=== PATIENT | male | born 1990 | race Caucasian/White ===

== ENCOUNTER 2023-10-02 18:12 | Inpatient (IN) | payer SELFPAY ==
[2023-10-02 19:20] VITALS: BMI 23.5
[2023-10-02] MEDS ORDERED: IBUPROFEN 400 MG TABLET (FP) PO PRN (21:01)
[2023-10-02] MEDS ORDERED: DICYCLOMINE HCL 10 MG CAPSULE PO PRN (21:01)
[2023-10-02] MEDS ORDERED: LOPERAMIDE HCL 2 MG CAPSULE PO PRN (21:01)
[2023-10-02] MEDS ORDERED: POLYETHYLENE GLYCOL (HEALTHYLAX) 3350 17 GM PACKET PO PRN (21:01)
[2023-10-02] MEDS ORDERED: NALOXONE HCL 0.4 MG/ML VIAL IM PRN (21:01)
[2023-10-02] MEDS ORDERED: NALOXONE HCL (KLOXXADO) 8 MG SPRAY NS PRN (21:01)
[2023-10-02] MEDS ORDERED: guaiFENesin 600 MG TABLET.ER (FP) PO PRN (21:01)
[2023-10-02] MEDS ORDERED: MAG HYDROX/AL HYDROX/SIMETH 30 ML UNIT-DOSE CUP PO PRN (21:01)
[2023-10-02] MEDS ORDERED: BENZONATATE 200 MG CAPSULE PO PRN (21:01)
[2023-10-02] MEDS ORDERED: BENZOCAINE/MENTHOL (CHLORASEPTIC ) LOZENGE MM PRN (21:01)
[2023-10-02] MEDS ORDERED: MAGNESIUM HYDROX 2400MG/30ML ORAL SUSPENSION 30 ML CUP PO PRN (21:01)
[2023-10-02] MEDS ORDERED: BISMUTH SUBSALICYLATE 524 MG/30 ML PO PRN (21:01)
[2023-10-02] MEDS ORDERED: ONDANSETRON *ODT* 4 MG TABLET SL PRN (21:01)
[2023-10-02] MEDS: THIAMINE HCL 100 MG TABLET (FP) PO SCH (22:53)
[2023-10-02] MEDS: MELATONIN 5 MG TABLETS PO SCH (22:53)
[2023-10-03] MEDS: hydrOXYzine PAMOATE 25 MG CAPSULE (FP) PO PRN (10:15)
[2023-10-03] MEDS: NICOTINE 14 MG/24 HOURS TOPICAL PATCH TD SCH (10:15)
[2023-10-03] MEDS: PRENATAL VITAMINS W/ FOLIC ACID TABLET (FP) PO SCH (10:15)
[2023-10-03] MEDS ORDERED: cloNIDine HCL 0.1 MG TABLET PO PRN (10:50)
[2023-10-03] MEDS: methaDONE HCL 10 MG TABLET (FOR DETOX USE ONLY) PO ONE (10:59)
[2023-10-03 15:30] LABS: CHLORIDE 107 mmol/L (98-107); POTASSIUM 4.1 mmol/L (3.5-5.1); SODIUM 142 mmol/L (136-145)
[2023-10-03 15:36] LABS: ANION GAP 6 mmol/L (4-13); CALCIUM 9.1 mg/dL (8.5-10.1); CO2 30 mmol/L (21-32); GLUCOSE,RANDOM 84 mg/dL (74-106)
[2023-10-03 15:37] LABS: BLOOD UREA NITROGEN 18.8 mg/dL (7-18)
[2023-10-03 15:39] LABS: CREATININE 0.7 mg/dL (0.55-1.3); SGPT/ALT 19 U/L (13-61)
[2023-10-03 15:40] LABS: SGOT/AST 12 U/L (15-37)
[2023-10-03 15:41] LABS: BILIRUBIN,TOTAL 0.8 mg/dL (0.2-1); TOT PROT 6.9 g/dl (6.4-8.2)
[2023-10-03 15:42] LABS: ALK PHOS 58 U/L (45-117)
[2023-10-03 15:44] LABS: HEMATOCRIT 40.8 % (35.4-49); HEMOGLOBIN 13.5 GM/dL (11.7-16.9); MCH 30.4 pg (25.7-33.7); MCHC 33.1 g/dl (32.0-35.9); MEAN PLT VOLUME 7.8 fl (7.5-11.1); PLATELET COUNT 271 10^3/uL (134-434); RBC 4.44 M/mm3 (4.00-5.60); RDW 13.5 % (11.9-15.9); WHITE BLOOD COUNT 6.8 K/mm3 (4.0-10.0)
[2023-10-03] MEDS: IBUPROFEN 600 MG TABLET (FP) PO PRN (18:37)
[2023-10-03] MEDS: METHOCARBAMOL 500 MG TABLET PO PRN (18:37)
[2023-10-04] MEDS ORDERED: TRIMETHOBENZAMIDE HCL 200MG/2ML INJ IM ONE (09:15)
[2023-10-04] MEDS: ONDANSETRON 4 MG/2 ML VIAL IM ONE (09:21)
[2023-10-04] MEDS: NICOTINE POLACRILEX 2 MG GUM BUC PRN (17:29)
[2023-10-05] MEDS: methaDONE HCL 10 MG TABLET (FOR DETOX USE ONLY) PO ONE (09:09)
[2023-10-05] MEDS: ACETAMINOPHEN 325 MG TABLET (FP) PO PRN (18:28)
[2023-10-07] MEDS: methaDONE HCL 10 MG TABLET (FOR DETOX USE ONLY) PO ONE (09:14)
[2023-10-07 12:50] VITALS: RESP 18
[2023-10-08 06:20] VITALS: BP 106/65; PULSE 68; TEMP 97.8
== END 2023-10-08 08:57 | disposition home or self-care (01) | DRG 773 ==
LOC: YASAS 18:12 → EDBD 21:34 → Y3N 21:34
PROVIDERS: ADMIT Allergy & Immunology; ATTEND Surgery
PROC: HZ2ZZZZ Detoxification Services for Substance Abuse Treatment (ICD-10-PCS; principal; 2023-10-02)
DX: F11.23 Opioid dependence with withdrawal (principal); F14.20 Cocaine dependence, uncomplicated; F12.20 Cannabis dependence, uncomplicated; F17.210 Nicotine dependence, cigarettes, uncomplicated; R76.8 Other specified abnormal immunological findings in serum; Z86.19 Personal history of other infectious and parasitic diseases
CPT/HCPCS: 36415; 71046-TC-FY; 80053; 80307; 85027; 86593; 86780; 93005; 93010

== ENCOUNTER 2024-02-24 14:06 | Inpatient (IN) | payer SELFPAY ==
[2024-02-24 15:13] VITALS: BMI 24.4
[2024-02-24] MEDS ORDERED: NALOXONE HCL 0.4 MG/ML VIAL IM PRN (15:21)
[2024-02-24] MEDS ORDERED: MAGNESIUM HYDROX 2400MG/30ML ORAL SUSPENSION 30 ML CUP PO PRN (15:21)
[2024-02-24] MEDS ORDERED: BISMUTH SUBSALICYLATE 262 MG/15 ML BTL PO PRN (15:21)
[2024-02-24] MEDS ORDERED: MAG HYDROX/AL HYDROX/SIMETH 30 ML UNIT-DOSE CUP PO PRN (15:21)
[2024-02-24] MEDS ORDERED: POLYETHYLENE GLYCOL (HEALTHYLAX) 3350 17 GM PACKET PO PRN (15:21)
[2024-02-24] MEDS ORDERED: hydrOXYzine PAMOATE 25 MG CAPSULE (FP) PO PRN (15:21)
[2024-02-24] MEDS ORDERED: DICYCLOMINE HCL 10 MG CAPSULE PO PRN (15:21)
[2024-02-24] MEDS ORDERED: ONDANSETRON *ODT* 4 MG TABLET SL PRN (15:21)
[2024-02-24] MEDS ORDERED: ACETAMINOPHEN 325 MG TABLET (FP) PO PRN (15:21)
[2024-02-24] MEDS ORDERED: NALOXONE (NARCAN) HCL 4 MG/0.1 ML SPRAY NS PRN (15:21)
[2024-02-24] MEDS ORDERED: BENZOCAINE/MENTHOL (CHLORASEPTIC ) LOZENGE MM PRN (15:21)
[2024-02-24] MEDS ORDERED: guaiFENesin 600 MG TABLET.ER (FP) PO PRN (15:21)
[2024-02-24] MEDS ORDERED: IBUPROFEN 600 MG TABLET (FP) PO PRN (15:21)
[2024-02-24] MEDS ORDERED: IBUPROFEN 400 MG TABLET (FP) PO PRN (15:21)
[2024-02-24] MEDS ORDERED: BENZONATATE 200 MG CAPSULE PO PRN (15:21)
[2024-02-24] MEDS ORDERED: methaDONE HCL 10 MG TABLET (FOR DETOX USE ONLY) ONE (16:15)
[2024-02-24] MEDS ORDERED: NICOTINE 14 MG/24 HOURS TOPICAL PATCH TD ONE (16:16)
[2024-02-24] MEDS: methaDONE HCL 10 MG TABLET PO ONE (16:18)
[2024-02-24] MEDS: NICOTINE 14 MG/24 HOURS TOPICAL PATCH TD SCH (16:19)
[2024-02-24] MEDS ORDERED: methaDONE HCL 10 MG TABLET PO PRN (17:21)
[2024-02-24] MEDS: cloNIDine HCL 0.1 MG TABLET PO SCH (18:01)
[2024-02-24] MEDS: THIAMINE 100 MG TABLET PO SCH (22:56)
[2024-02-24] MEDS: MELATONIN 5 MG TABLETS PO SCH (22:56)
[2024-02-24] MEDS: METHOCARBAMOL 500 MG TABLET PO PRN (22:57)
[2024-02-25] MEDS: methaDONE 40 MG, methaDONE 10 MG PO ONE (09:58)
[2024-02-25] MEDS: PRENATAL VITAMINS W/ FOLIC ACID TABLET (FP) PO SCH (09:59)
[2024-02-25 14:22] LABS: CHLORIDE 111 mmol/L (98-107); POTASSIUM 3.9 mmol/L (3.5-5.1); SODIUM 143 mmol/L (136-145)
[2024-02-25 14:24] LABS: CALCIUM 9.1 mg/dL (8.5-10.1)
[2024-02-25 14:25] LABS: ALBUMIN 3.7 g/dl (3.4-5.0); ANION GAP 7 mmol/L (4-13); BLOOD UREA NITROGEN 10.6 mg/dL (7-18); CO2 25 mmol/L (21-32); GLUCOSE,RANDOM 85 mg/dL (74-106); HEMATOCRIT 39.8 % (35.4-49); HEMOGLOBIN 13.5 GM/dL (11.7-16.9); MCH 30.8 pg (25.7-33.7); MEAN CELL VOLUME 90.8 fl (80-96); MEAN PLT VOLUME 8.1 fl (7.5-11.1); PLATELET COUNT 261 10^3/uL (134-434); RBC 4.38 M/mm3 (4.00-5.60); RDW 13.3 % (11.9-15.9); WHITE BLOOD COUNT 5.2 K/mm3 (4.0-10.0)
[2024-02-25 14:26] LABS: CREATININE 0.7 mg/dL (0.55-1.3); SGOT/AST 10 U/L (15-37)
[2024-02-25 14:30] LABS: BILIRUBIN,TOTAL 0.7 mg/dL (0.2-1); TOT PROT 6.2 g/dl (6.4-8.2)
[2024-02-25 14:31] LABS: ALK PHOS 55 U/L (45-117)
[2024-02-25 14:59] LABS: SGPT/ALT 20 U/L (13-61)
[2024-02-26] MEDS ORDERED: cloNIDine HCL 0.1 MG TABLET PO PRN
[2024-02-26] MEDS: methaDONE 40 MG, methaDONE 20 MG PO ONE (10:16)
[2024-02-26] MEDS: MELATONIN 5 MG TABLETS PO PRN (22:24)
[2024-02-27] MEDS: methaDONE 40 MG, methaDONE 30 MG PO ONE (09:42)
[2024-02-27] MEDS: NICOTINE POLACRILEX 2 MG GUM BUC PRN (22:04)
[2024-02-28] MEDS: methaDONE HCL 40 MG DISPERSABLE TABLET PO ONE (10:02)
[2024-02-29] MEDS: methaDONE 80 MG, methaDONE 10 MG PO ONE (09:31)
[2024-02-29 16:57] VITALS: RESP 16
[2024-02-29] MEDS: LOPERAMIDE HCL 2 MG CAPSULE PO PRN (21:26)
[2024-03-01 06:13] VITALS: PULSE 74
[2024-03-01 09:04] VITALS: BP 107/56; TEMP 97.5
[2024-03-01] MEDS ORDERED: methaDONE HCL 10 MG TABLET PO SCH (11:15)
[2024-03-01] MEDS: methaDONE 80 MG, methaDONE 10 MG PO SCH (11:22)
== END 2024-03-01 12:19 | disposition home or self-care (01) | DRG 773 ==
LOC: YASAS 14:06 → Y6N 16:26
PROVIDERS: ADMIT Allergy & Immunology; ATTEND Psychiatry & Neurology Pain Medicine
PROC: HZ2ZZZZ Detoxification Services for Substance Abuse Treatment (ICD-10-PCS; principal; 2024-02-24)
DX: F11.23 Opioid dependence with withdrawal (principal); F14.20 Cocaine dependence, uncomplicated; F15.10 Other stimulant abuse, uncomplicated; F12.20 Cannabis dependence, uncomplicated; F17.210 Nicotine dependence, cigarettes, uncomplicated; Z86.19 Personal history of other infectious and parasitic diseases
CPT/HCPCS: 36415; 80053; 80305; 80307; 85027; 86593; 86780; 93005; 93010

== ENCOUNTER 2024-11-22 18:29 | Inpatient (IN) | payer SELFPAY ==
[2024-11-22 19:04] VITALS: BMI 27.3
[2024-11-22] MEDS ORDERED: BENZOCAINE/MENTHOL (CHLORASEPTIC ) LOZENGE MM PRN (19:51)
[2024-11-22] MEDS ORDERED: NICOTINE POLACRILEX 2 MG LOZENGE BC PRN (19:51)
[2024-11-22] MEDS ORDERED: LOPERAMIDE HCL 2 MG CAPSULE PO PRN (19:51)
[2024-11-22] MEDS ORDERED: POLYETHYLENE GLYCOL (HEALTHYLAX) 3350 17 GM PACKET PO PRN (19:51)
[2024-11-22] MEDS ORDERED: BENZONATATE 200 MG CAPSULE PO PRN (19:51)
[2024-11-22] MEDS ORDERED: ONDANSETRON *ODT* 4 MG TABLET SL PRN (19:51)
[2024-11-22] MEDS ORDERED: DICYCLOMINE HCL 10 MG CAPSULE PO PRN (19:51)
[2024-11-22] MEDS ORDERED: MAGNESIUM HYDROX 2400MG/30ML ORAL SUSPENSION 30 ML CUP PO PRN (19:51)
[2024-11-22] MEDS ORDERED: IBUPROFEN 400 MG TABLET (FP) PO PRN (19:51)
[2024-11-22] MEDS ORDERED: guaiFENesin 600 MG TABLET.ER (FP) PO PRN (19:51)
[2024-11-22] MEDS ORDERED: NALOXONE (NARCAN) HCL 4 MG/0.1 ML SPRAY NS PRN (19:51)
[2024-11-22] MEDS ORDERED: MAG HYDROX/AL HYDROX/SIMETH 30 ML UNIT-DOSE CUP PO PRN (19:51)
[2024-11-22] MEDS ORDERED: BISMUTH SUBSALICYLATE 524 MG/30 ML PO PRN (19:51)
[2024-11-22] MEDS: MELATONIN 5 MG TABLETS PO SCH (21:28)
[2024-11-22] MEDS: METHOCARBAMOL 500 MG TABLET PO PRN (21:28)
[2024-11-22] MEDS: hydrOXYzine PAMOATE 25 MG CAPSULE (FP) PO PRN (21:28)
[2024-11-22] MEDS: THIAMINE 100 MG TABLET PO SCH (21:29)
[2024-11-23] MEDS: cloNIDine HCL 0.1 MG TABLET PO SCH (09:10)
[2024-11-23] MEDS: methaDONE HCL 40 MG DISPERSABLE TABLET PO ONE (09:10)
[2024-11-23] MEDS: PRENATAL VITAMINS W/ FOLIC ACID TABLET (FP) PO SCH (09:11)
[2024-11-23 11:19] LABS: HEMATOCRIT 41.1 % (40.1-51.0); HEMOGLOBIN 13.4 g/dL (13.7-17.5); MCHC 32.6 g/dl (32.3-36.5); MEAN CELL VOLUME 93.2 fl (79.0-92.2); PLATELET COUNT 268 x10^3/uL (163-337); RDW 12.9 % (12.0-15.6)
[2024-11-23 11:26] LABS: POTASSIUM 4.3 mmol/L (3.5-5.1)
[2024-11-23 11:35] LABS: ALBUMIN 3.7 g/dl (3.4-5.0); CALCIUM 9.5 mg/dL (8.5-10.1)
[2024-11-23 11:36] LABS: BLOOD UREA NITROGEN 14.4 mg/dL (7-18)
[2024-11-23 11:39] LABS: CREATININE 0.8 mg/dL (0.55-1.3)
[2024-11-23 11:40] LABS: BILIRUBIN,TOTAL 0.5 mg/dL (0.2-1); TOT PROT 6.5 g/dl (6.4-8.2)
[2024-11-23] MEDS: ACETAMINOPHEN 325 MG TABLET (FP) PO PRN (17:13)
[2024-11-24] MEDS: IBUPROFEN 600 MG TABLET (FP) PO PRN (17:28)
[2024-11-25] MEDS ORDERED: cloNIDine HCL 0.1 MG TABLET PO PRN
[2024-11-25] MEDS: methaDONE 40 MG, methaDONE 10 MG PO ONE (09:38)
[2024-11-26] MEDS: NICOTINE POLACRILEX 2 MG GUM BUC PRN (13:39)
[2024-11-27] MEDS: methaDONE 40 MG, methaDONE 20 MG PO ONE (09:22)
[2024-11-28 09:04] VITALS: BP 125/76; PULSE 68; RESP 18; TEMP 96.9
== END 2024-11-28 09:05 | disposition home or self-care (01) | DRG 773 ==
LOC: YASAS 18:29 → Y6N 20:40
PROVIDERS: ADMIT Allergy & Immunology; ATTEND Family Medicine Addiction Medicine
PROC: HZ2ZZZZ Detoxification Services for Substance Abuse Treatment (ICD-10-PCS; principal; 2024-11-22)
DX: F11.23 Opioid dependence with withdrawal (principal); F14.20 Cocaine dependence, uncomplicated; F12.20 Cannabis dependence, uncomplicated; F17.210 Nicotine dependence, cigarettes, uncomplicated; F19.282 Other psychoactive substance dependence with psychoactive substance-induced sleep disorder; F19.24 Other psychoactive substance dependence with psychoactive substance-induced mood disorder; Z86.19 Personal history of other infectious and parasitic diseases
CPT/HCPCS: 36415; 80053; 80305; 80307; 85027; 86593; 86780; 93005; 93010